=== PATIENT | female | born 1990 | race Caucasian/White ===

== ENCOUNTER 2018-10-18 20:40 | Outpatient (CLI) | payer OTHER ==
[2018-10-18] MEDS: ACETAMINOPHEN 1000MG/100ML IV 100 ML IVPB (22:30)
[2018-10-18] MEDS: LACTATED RINGER'S 1,000 ML IV ×2 (22:30→23:38)
[2018-10-18] MEDS: ONDANSETRON 4 MG INJ IV (22:30)
[2018-10-18 22:42] LABS: ADD MAN DIFF? NO
[2018-10-18 22:45] LABS: BASOPHILS % 0.1 % (0.0-2.0); HEMATOCRIT 35.6 % (37.0-47.0); HEMOGLOBIN 12.6 g/dl (12.0-16.0); LYMPHOCYTES # 1.3 10^3/ul (0.8-2.9); LYMPHOCYTES % 8.8 % (15.0-51.0); MEAN CORPUSCULAR HEMOGLOBIN 29.4 pg (29.0-33.0); MEAN CORPUSCULAR HGB CONC 35.4 g/dl (32.0-37.0); MEAN CORPUSCULAR VOLUME 83.2 fl (82.0-101.0); MEAN PLATELET VOLUME 10.2 fl (7.4-10.4); MONOCYTE # 0.4 10^3/ul (0.3-0.9); NEUTROPHIL # 12.5 10^3/ul (1.6-7.5); NEUTROPHILS % 87.7 % (39.0-77.0); PLATELET COUNT 329 10^3/UL (140-415); RED BLOOD COUNT 4.28 10^6/ul (4.20-5.40); RED CELL DISTRIBUTION WIDTH 12.6 % (11.5-14.5)
[2018-10-18 22:45] LABS: WHITE BLOOD COUNT 14.3 10^3/ul (4.8-10.8)
[2018-10-18 23:05] LABS: HEMOGLOBIN A1C 7.8 % (0-5.9)
[2018-10-18 23:06] LABS: ALANINE AMINOTRANSFERASE 9 IU/L (13-69); ALBUMIN 3.8 g/dl (3.3-4.9); ALBUMIN/GLOBULIN RATIO 1.15; ALKALINE PHOSPHATASE 90 IU/L (42-121); ANION GAP 13 (5-13); ASPARTATE AMINO TRANSFERASE 15 IU/L (15-46); BILIRUBIN,INDIRECT 0.3 mg/dl (0-1.1); BILIRUBIN,TOTAL 0.3 mg/dl (0.2-1.3); BLOOD UREA NITROGEN 11 mg/dl (7-20); CALCIUM 9.1 mg/dl (8.4-10.2); CARBON DIOXIDE 20 mmol/L (21-31); CHLORIDE 105 mmol/L (97-110); CREATININE 0.32 mg/dl (0.44-1.00); Estimated GFR > 60 mL/min (>60); GLUCOSE 131 mg/dl (70-220); POTASSIUM 3.2 mmol/L (3.5-5.1); SODIUM 138 mmol/L (135-144); TOTAL PROTEIN 7.1 g/dl (6.1-8.1)
[2018-10-19 00:48] LABS: ADD UMIC YES; UR ASCORBIC ACID 40 mg/dL (NEGATIVE); UR BACTERIA FEW /HPF (NONE SEEN); UR BILIRUBIN (Dip) NEGATIVE (NEGATIVE); UR BLOOD (Dip) NEGATIVE (NEGATIVE); UR CLARITY SLIGHTLY CLOUDY (CLEAR); UR COLOR YELLOW (YELLOW); UR GLUCOSE (Dip) 1+ mg/dL (NEGATIVE); UR KETONES (Dip) 2+ mg/dL (NEGATIVE); UR LEUKOCYTE ESTERASE (Dip) NEGATIVE Leu/ul (NEGATIVE); UR MUCUS FEW /HPF (NONE SEEN); UR NITRITE (Dip) NEGATIVE (NEGATIVE); UR RBC 1 /HPF (0-5); UR SPECIFIC GRAVITY (Dip) 1.032 (1.003-1.030); UR SQUAMOUS EPITHELIAL CELL FEW /HPF (FEW); UR TOTAL PROTEIN (Dip) 1+ mg/dl (NEGATIVE); UR UROBILINOGEN (Dip) NEGATIVE (NEGATIVE); UR WBC 2 /HPF (0-5)
== END 2018-10-19 01:18 | disposition home or self-care (01) ==
LOC: OBT 20:40 → L-D 20:42
DX: O26.892 Other specified pregnancy related conditions, second trimester (principal); R51 Headache; O21.9 Vomiting of pregnancy, unspecified; O24.912 Unspecified diabetes mellitus in pregnancy, second trimester; Z79.4 Long term (current) use of insulin; Z3A.25 25 weeks gestation of pregnancy
CPT/HCPCS: 36415; 76815; 76817; 80053; 81001; 83036; 85025; 96360; 96361

== ENCOUNTER 2018-10-19 01:24 | Emergency (ER) | payer OTHER ==
[2018-10-19] MEDS: SOD CHLORIDE 0.9% 1,000 ML IV (02:45)
[2018-10-19] MEDS: METOCLOPRAMIDE 10 MG INJ IV (04:08)
[2018-10-19] MEDS: ACETAMINOPHEN 500 MG TAB PO (04:39)
[2018-10-19 04:47] LABS: ADD UMIC YES; UR ASCORBIC ACID 40 mg/dL (NEGATIVE); UR BILIRUBIN (Dip) NEGATIVE (NEGATIVE); UR BLOOD (Dip) NEGATIVE (NEGATIVE); UR CLARITY SLIGHTLY CLOUDY (CLEAR); UR COLOR YELLOW (YELLOW); UR GLUCOSE (Dip) 3+ mg/dL (NEGATIVE); UR KETONES (Dip) 2+ mg/dL (NEGATIVE); UR LEUKOCYTE ESTERASE (Dip) NEGATIVE Leu/ul (NEGATIVE); UR NITRITE (Dip) NEGATIVE (NEGATIVE); UR RBC 1 /HPF (0-5); UR SPECIFIC GRAVITY (Dip) 1.026 (1.003-1.030); UR SQUAMOUS EPITHELIAL CELL FEW /HPF (FEW); UR TOTAL PROTEIN (Dip) 1+ mg/dl (NEGATIVE); UR UROBILINOGEN (Dip) NEGATIVE (NEGATIVE); UR WBC 2 /HPF (0-5)
== END 2018-10-19 05:43 | disposition home or self-care (01) ==
LOC: FTE 05:43
DX: O26.892 Other specified pregnancy related conditions, second trimester (principal); R51 Headache; O24.112 Pre-existing type 2 diabetes mellitus, in pregnancy, second trimester; E11.9 Type 2 diabetes mellitus without complications; Z3A.25 25 weeks gestation of pregnancy; Z79.4 Long term (current) use of insulin
CPT/HCPCS: 81001; 82962; 96374; 99284-25

== ENCOUNTER 2019-01-18 05:39 | Inpatient (IN) | payer OTHER ==
[2019-01-18] MEDS ORDERED: MISOPROSTOL 200 MCG TAB PR ×2 (06:00→08:00)
[2019-01-18] MEDS ORDERED: OXYTOCIN 30 UNITS/LR 500 ML IV (06:00)
[2019-01-18] MEDS ORDERED: CARBOPROST 250 MCG INJ IM (06:00)
[2019-01-18] MEDS ORDERED: AMPICILLIN 2 GM/NS (PMX) 100 ML IV (06:00)
[2019-01-18] MEDS ORDERED: METHYLERGONOVINE 0.2 MG INJ IM (06:00)
[2019-01-18 06:41] LABS: ADD MAN DIFF? NO
[2019-01-18] MEDS: LACTATED RINGER'S 1,000 ML IV ×4 (06:44→15:33)
[2019-01-18 06:47] LABS: WHITE BLOOD COUNT 7.5 10^3/ul (4.8-10.8)
[2019-01-18 06:47] LABS: BASOPHILS % 0.3 % (0.0-2.0); EOSINOPHILS # 0.1 10^3/ul (0.0-0.5); EOSINOPHILS % 0.8 % (0.0-7.0); HEMATOCRIT 34.4 % (37.0-47.0); HEMOGLOBIN 11.6 g/dl (12.0-16.0); LYMPHOCYTES # 1.9 10^3/ul (0.8-2.9); LYMPHOCYTES % 24.9 % (15.0-51.0); MEAN CORPUSCULAR HEMOGLOBIN 27.3 pg (29.0-33.0); MEAN CORPUSCULAR HGB CONC 33.7 g/dl (32.0-37.0); MEAN CORPUSCULAR VOLUME 80.9 fl (82.0-101.0); MEAN PLATELET VOLUME 12.5 fl (7.4-10.4); MONOCYTE # 0.5 10^3/ul (0.3-0.9); NEUTROPHILS % 66.7 % (39.0-77.0); PLATELET COUNT 236 10^3/UL (140-415); RED BLOOD COUNT 4.25 10^6/ul (4.20-5.40); RED CELL DISTRIBUTION WIDTH 13.4 % (11.5-14.5)
[2019-01-18 07:16] LABS: GLUCOSE 167 mg/dl (70-220)
[2019-01-18 07:18] LABS: INR 0.89; PROTIME 12.2 Sec (11.9-14.9)
[2019-01-18 07:19] LABS: PARTIAL THROMBOPLASTIN TIME 26.1 Sec (23.0-35.0)
[2019-01-18] MEDS: CITRIC ACID/NA CITRATE 30 ML CUP PO (07:36)
[2019-01-18] MEDS: FAMOTIDINE 20 MG INJ IV (07:37)
[2019-01-18] MEDS: METOCLOPRAMIDE 10 MG INJ IV (07:37)
[2019-01-18] MEDS ORDERED: OXYCODONE/ACETAMINOPHEN (5/325) TAB PO (08:00)
[2019-01-18] MEDS ORDERED: NPH, HUMAN INSULIN ISOPHANE 3ML VIAL SC (08:00)
[2019-01-18] MEDS ORDERED: NA PHOSPHATE/BIPHOS 133 ML ENEMA PR (08:00)
[2019-01-18] MEDS ORDERED: DEXTROSE 50% 50 ML SYRINGE IV ×2 (08:00)
[2019-01-18] MEDS ORDERED: GLUCOSE GEL 15 GRAM TUBE BUCCAL (08:00)
[2019-01-18] MEDS ORDERED: GLUCAGON 1 MG INJ IM (08:00)
[2019-01-18] MEDS ORDERED: GLUCOSE GEL 15 GRAM TUBE PO ×2 (08:00)
[2019-01-18] MEDS ORDERED: INSULIN REGULAR, HUMAN 100 UNIT/1 ML 3ML VIAL SC (08:00)
[2019-01-18] MEDS: NPH, HUMAN INSULIN ISOPHANE 3ML VIAL SC ×2 (08:07→19:59)
[2019-01-18] MEDS ORDERED: morphine SULFATE/PF (10 MG/10 ML) INJ (08:13)
[2019-01-18] MEDS ORDERED: EPHEDrine 25 MG/5 ML SYG (08:13)
[2019-01-18] MEDS ORDERED: OXYTOCIN 30 UNITS/LR 500 ML BAG IV (08:13)
[2019-01-18] MEDS ORDERED: PHENYLephrine (100 MCG/ML) 10ML SYG (08:23)
[2019-01-18] MEDS ORDERED: ONDANSETRON 4 MG INJ (08:59)
[2019-01-18] MEDS ORDERED: MEPERIDINE 25 MG INJ IV (09:30)
[2019-01-18] MEDS ORDERED: HYDROmorphONE 1 MG/5 ML IV SYRINGE IV ×3 (09:30)
[2019-01-18] MEDS ORDERED: PROCHLORPERAZINE 10 MG INJ IV (09:30)
[2019-01-18] MEDS ORDERED: FENTAnyl 50 MCG/ML VIAL IV (09:30)
[2019-01-18] MEDS ORDERED: ONDANSETRON 4 MG INJ IV ×2 (09:30→10:00)
[2019-01-18] MEDS: OXYTOCIN 30 UNITS/LR 500 ML IV (09:44)
[2019-01-18] MEDS ORDERED: NALOXONE (0.4 MG/ML) INJ IV (10:00)
[2019-01-18] MEDS ORDERED: HYDROmorphONE 0.5 MG/0.5 ML SYG IV ×2 (10:00)
[2019-01-18] MEDS: DIPHENHYDRAMINE 50 MG INJ IV ×2 (10:53→18:05)
[2019-01-18] MEDS ORDERED: IBUPROFEN 600 MG TAB PO (12:00)
[2019-01-18] MEDS: KETOROLAC 30 MG INJ IV ×2 (12:07→19:00)
[2019-01-18] MEDS: CEFAZOLIN 2 GM/50 ML (PMX) 50 ML IVPB (13:52)
[2019-01-18] MEDS: INSULIN ASPART [NOVOLOG] 3 ML PEN SC ×4 (13:58→21:16)
[2019-01-18] MEDS: SENNA/DOCUSATE NA (8.6MG/50MG) TAB PO ×2 (14:00→21:22)
[2019-01-18 18:32] LABS: RHOGAM PROFILE 1 1
[2019-01-18 19:59] LABS: RAPID PLASMA REAGIN NONREACTIVE (NR)
[2019-01-19] MEDS: LACTATED RINGER'S 1,000 ML IV ×2 (00:51→05:54)
[2019-01-19] MEDS: DIPHENHYDRAMINE 50 MG INJ IV (04:22)
[2019-01-19] MEDS: KETOROLAC 30 MG INJ IV (05:58)
[2019-01-19] MEDS: INSULIN ASPART [NOVOLOG] 3 ML PEN SC ×4 (08:05→21:03)
[2019-01-19] MEDS: NPH, HUMAN INSULIN ISOPHANE 3ML VIAL SC ×2 (08:41→20:09)
[2019-01-19] MEDS: SENNA/DOCUSATE NA (8.6MG/50MG) TAB PO ×2 (08:44→20:09)
[2019-01-19 09:40] LABS: ADD MAN DIFF? NO
[2019-01-19 09:43] LABS: WHITE BLOOD COUNT 9.6 10^3/ul (4.8-10.8)
[2019-01-19 09:43] LABS: BASOPHILS % 0.2 % (0.0-2.0); EOSINOPHILS # 0.1 10^3/ul (0.0-0.5); EOSINOPHILS % 0.7 % (0.0-7.0); HEMATOCRIT 30.1 % (37.0-47.0); HEMOGLOBIN 9.8 g/dl (12.0-16.0); LYMPHOCYTES # 1.5 10^3/ul (0.8-2.9); LYMPHOCYTES % 15.9 % (15.0-51.0); MEAN CORPUSCULAR HEMOGLOBIN 27.5 pg (29.0-33.0); MEAN CORPUSCULAR HGB CONC 32.6 g/dl (32.0-37.0); MEAN CORPUSCULAR VOLUME 84.6 fl (82.0-101.0); MEAN PLATELET VOLUME 12.4 fl (7.4-10.4); MONOCYTE # 0.6 10^3/ul (0.3-0.9); MONOCYTES % 6.3 % (0.0-11.0); NEUTROPHIL # 7.4 10^3/ul (1.6-7.5); NEUTROPHILS % 76.6 % (39.0-77.0); PLATELET COUNT 199 10^3/UL (140-415); RED BLOOD COUNT 3.56 10^6/ul (4.20-5.40); RED CELL DISTRIBUTION WIDTH 13.4 % (11.5-14.5)
[2019-01-19] MEDS: IBUPROFEN 600 MG TAB PO ×2 (12:18→18:12)
[2019-01-19] MEDS: LANOLIN HPA 1 PKT TOP (12:29)
[2019-01-19] MEDS: OXYCODONE/ACETAMINOPHEN (5/325) TAB PO ×2 (14:00→21:04)
[2019-01-20] MEDS: IBUPROFEN 600 MG TAB PO ×4 (00:16→17:55)
[2019-01-20] MEDS: NPH, HUMAN INSULIN ISOPHANE 3ML VIAL SC ×2 (08:43→20:19)
[2019-01-20] MEDS: OXYCODONE/ACETAMINOPHEN (5/325) TAB PO ×3 (08:51→20:14)
[2019-01-20] MEDS: SENNA/DOCUSATE NA (8.6MG/50MG) TAB PO ×2 (08:52→20:20)
[2019-01-20] MEDS ORDERED: DIPHENHYDRAMINE 25 MG CAP PO (10:30)
[2019-01-20] MEDS: INSULIN ASPART [NOVOLOG] 3 ML PEN SC ×4 (11:50→21:24)
[2019-01-20] MEDS: DIPHENHYDRAMINE 1%/ZINC 28.3 GM CR TOP (11:50)
[2019-01-21] MEDS: IBUPROFEN 600 MG TAB PO ×3 (00:24→12:42)
[2019-01-21] MEDS: INSULIN ASPART [NOVOLOG] 3 ML PEN SC ×2 (08:05→11:50)
[2019-01-21] MEDS: NPH, HUMAN INSULIN ISOPHANE 3ML VIAL SC (08:45)
[2019-01-21] MEDS: OXYCODONE/ACETAMINOPHEN (5/325) TAB PO ×2 (08:52→15:30)
[2019-01-21] MEDS: DIPHTH/TET/ACEL PERTUSS (ADULT) 0.5 ML VIAL IM* (09:00)
[2019-01-21] MEDS: SENNA/DOCUSATE NA (8.6MG/50MG) TAB PO (09:00)
[2019-01-21] MEDS ORDERED: MEASLES,MUMPS,RUBELLA VACCINE INJ SC* (09:00)
[2019-01-21] MEDS: LANOLIN HPA 1 PKT TOP (15:23)
== END 2019-01-21 17:20 | disposition home or self-care (01) | DRG 787 ==
LOC: L-D 05:39 → PP1 13:30
PROVIDERS: Family Medicine; Specialist
PROC: 10D00Z1 Extraction of Products of Conception, Low, Open Approach (ICD-10-PCS; principal; 2019-01-18 07:30)
PROC: 10D00Z1 Extraction of Products of Conception, Low, Open Approach (ICD-10-PCS; 2019-01-18 07:30)
DX: O65.5 Obstructed labor due to abnormality of maternal pelvic organs (principal); O24.113 Pre-existing type 2 diabetes mellitus, in pregnancy, third trimester; O99.213 Obesity complicating pregnancy, third trimester; O34.211 Maternal care for low transverse scar from previous cesarean delivery; Z3A.38 38 weeks gestation of pregnancy; Z37.0 Single live birth; O36.63X0 Maternal care for excessive fetal growth, third trimester, not applicable or unspecified; E11.9 Type 2 diabetes mellitus without complications; O40.3XX0 Polyhydramnios, third trimester, not applicable or unspecified; Z79.4 Long term (current) use of insulin
CPT/HCPCS: 82947; 82962; 85025; 85610; 85730; 86592; 86850; 86885; 86900; 86901; 99464